=== PATIENT | female | born 1980 | race Caucasian/White ===

== ENCOUNTER 2018-06-01 09:37 | Emergency (ER) | payer MEDICAID, SELFPAY ==
[2018-06-01 09:41] VITALS: BP 142/40; PULSE 88; RESP 16; TEMP 36.8; O2SAT 96
--- NOTE | 2018-06-01 10:12 | ED.GENADUL_ITS ---
Discharge Plan Disposition Patient Disposition: HOME Condition: Improving Discharge Details Chief Complaint: Nk/Back Pain Clinical Impression: Rhomboid muscle strain Primary Care Provider: Kyree Kaur ED Provider: Seamus Natarajan Home Meds and New Rx's Prescriptions: New methocarbamol 500 mg tablet 500 mg PO Q6H PRN (Reason: Back pain or spasm) Qty: 14 RF: 0 Continued omeprazole 40 mg capsule,delayed release(DR/EC) 40 mg PO DAILY PRN (Reason: gerd) Qty: 45 RF: 3 fluticasone propionate 50 mcg/actuation spray,suspension 2 spray NS DAILY Qty: 16 RF: 3 methylphenidate HCl 10 mg tablet 10 mg PO TID MDD 3 tabs Qty: 90 RF: 0 Mirena 1 EACH intrauterine device 1 ea DAILY RF: 0 Discharge Instructions Instructions: Muscle Strain (ED) Additional Instructions: Follow-up with physical therapy as prescribed. Methocarbamol, as needed for discomfort. Continue acetaminophen 650-975 mg every 6 hours, and/or ibuprofen 600-800 mg every 8 hours, with food. Remove Lidoderm patch in 12 hours. 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 Minimally improved with [id number] medications. Reproducible and consistent with spasm and possible rhomboid spasm on exam. Will trial methocarbamol, Lidoderm patch times 12 hours, referral to physical therapy discussed with her home management as well as return HPI General Mode of arrival: ambulatory . Date/Time Provider Initiated Documentation: 06/01/18 09:46 . Limitations to Documentation: no limitations . Information obtained by: patient . History of Present Illness 37 year old F presents to the emergency department with the chief complaint of Right neck and back pain over 2 months, described as moderate, Quality is described as aching, and is localized to the neck, back and right. Patient started experiencing this hour(s) and it has been constant. Rest improves symptom(s), Movement worsens symptoms . Patient notes no other symptoms.; denies chest pain, cough, fever/chills and rash. Patient did receive the following treatments prior to arrival, none Related Data Home Medications Medication Instructions Recorded Confirmed Mirena 1 ea DAILY 05/22/13 06/01/18 omeprazole 40 mg capsule,delayed 40 mg PO DAILY PRN #45 tab-cap 01/09/18 06/01/18 release fluticasone propionate 50 2 spray NS DAILY #16 gm 04/11/18 06/01/18 mcg/actuation nasal spray,suspension methylphenidate 10 mg tablet 10 mg PO TID #90 tab MDD 3 tabs 05/11/18 06/01/18 methocarbamol 500 mg PO Q6H PRN #14 tab 06/01/18 Previous Rx's Medication Instructions Recorded omeprazole 40 mg capsule,delayed 40 mg PO DAILY PRN #45 tab-cap 01/09/18 release fluticasone propionate 50 2 spray NS DAILY #16 gm 04/11/18 mcg/actuation nasal spray,suspension methylphenidate 10 mg tablet 10 mg PO TID #90 tab MDD 3 tabs 05/11/18 methocarbamol 500 mg PO Q6H PRN #14 tab 06/01/18 Allergies Allergy/AdvReac Type Severity Reaction Status Date / Time No Known Allergies Allergy Unverified 06/01/18 10:00 General Stated Complaint: Nk/Back Pain SIDRA: 3 Review of Systems Review of Systems 6 systems reviewed and otherwise - [facility] Surgical History Cholecystectomy (~2000) Tooth extraction (~2008) Social History Smoking and Tabacco status: Former Tobacco Use Exam Narrative Exam Narrative: GEN: awake, alert, oriented 3. Pleasant, well groomed, interactive. HEAD: Normocephalic, atraumatic ENT: Mucous membranes moist, oropharynx unremarkable, External ear exam unremarkable EYES: PERRL, EOMI NECK: Full ROM, no AGUILA, no menigismus. Right posterior neck and medial scapular pain and spasm on palpation. No midline step-off or deformity CHEST/RESP: Nontender, clear to auscultation bilateral, no wheeze/rhonchi/rales CARDIOVASCULAR: RRR, no murmur, rub berenice. 2+ Rad pulse bilateral ABDOMEN: Soft, nontender, no mass. +Bowel sounds EXT: Full ROM, no edema, no rash Neuro: Grossly normal neurologic exam, conversant, interactive. Motor 5 out of 5 in the bilateral upper extremities. Sensation intact throughout Psych: Speech fluent, thoughts congruent, affect normal Course Vital Signs Temperature 36.8 C 06/01/18 09:41 Pulse 88 06/01/18 09:41 Respiratory Rate 16 06/01/18 09:41 Blood Pressure 142/40 H 06/01/18 09:41 Pulse Oximetry 96 06/01/18 09:41 Temperature 36.8 C 06/01/18 09:41 Temperature Source Skin 06/01/18 09:41 Pulse 88 06/01/18 09:41 Respiratory Rate 16 06/01/18 09:41 Respiratory Effort 06/01/18 10:02 Blood Pressure 142/40 H 06/01/18 09:41 Blood Pressure Position Standing 06/01/18 09:41 Pulse Oximetry 96 06/01/18 09:41 Oxygen Delivery Method Room Air 06/01/18 09:41 Oxygen Flow Rate 0 06/01/18 09:41 Pain Level 8 06/01/18 09:41
[2018-06-01] MEDS: Lidocaine 5% Patch 1 PATCH TP (10:17)
== END 2018-06-01 10:22 | disposition home or self-care (01) ==
PROVIDERS: Emergency Provider Emergency Medicine; PCP Family Medicine
DX: S46.812A Strain of other muscles, fascia and tendons at shoulder and upper arm level, left arm, initial encounter (principal); X50.3XXA Overexertion from repetitive movements, initial encounter
CPT/HCPCS: 99283

== ENCOUNTER 2018-10-10 09:21 | Outpatient (CLI) | payer MEDICAID, SELFPAY ==
[2018-10-10 11:03] LABS: Calculated LDL 139 mg/dL; Cholesterol 199 mg/dL (50-200); Glucose 106 mg/dL (70-100); HDL Cholesterol 37 mg/dL (40-60); Triglyceride 116 mg/dL (30-150)
== END 2018-10-10 09:41 ==
PROVIDERS: PCP Family Medicine; Visit Provider Family Medicine
DX: E66.3 Overweight (principal); K21.9 Gastro-esophageal reflux disease without esophagitis; F90.9 Attention-deficit hyperactivity disorder, unspecified type
CPT/HCPCS: 36415; 80061; 82947; 83721

== ENCOUNTER 2021-05-29 18:40 | Outpatient (REF) | payer MEDICAID, SELFPAY ==
[2021-05-29 18:52] LABS: ALT 26 U/L (14-59); AST 15 U/L (15-37); Albumin 3.9 g/dL (3.4-5.0); Alkaline Phosphatase 97 U/L (46-116); Bilirubin, Total 0.3 mg/dL (0.2-1.0); Calculated LDL 100 mg/dL (<100); Cholesterol 202 mg/dL (<200); Glucose 91 mg/dL (74-106); HDL Cholesterol 33 mg/dL (40-60); Triglyceride 348 mg/dL (<150)
[2021-05-29 19:06] LABS: Bilirubin, Direct 0.1 mg/dL (0.0-0.2)
== END 2021-05-29 18:41 | disposition home or self-care (01) ==
LOC: LBN 18:40
PROVIDERS: PCP Family Medicine; Visit Provider Family Medicine
DX: E78.5 Hyperlipidemia, unspecified (principal); R73.9 Hyperglycemia, unspecified; G72.89 Other specified myopathies
CPT/HCPCS: 80061; 80076; 82947

== ENCOUNTER → 2022-01-18 01:44 | Outpatient (CLI) | payer MEDICAID, SELFPAY ==
--- NOTE | 2022-01-18 08:50 | DI.MAMMO_ITS ---
Exam(s) MAMMO SCREENING EXAM: MAMMO SCREENING CLINICAL HISTORY: BASELINE SCREENING, Z12.31 TECHNIQUE: Mammograms were interpreted according to the usual protocol including computer analysis w [employer] CAD system, tomosynthesis and C-view imaging. COMPARISON: No exams were available for comparison. Baseline examination. FINDINGS: The breasts are composed of scattered fibroglandular densities, Breast Density category B. No suspicious masses or suspicious microcalcifications are seen. No skin thickening or abnormal axillary lymph nodes are seen. . IMPRESSION: BI-RADS Category 1, Negative mammogram Yearly screening mammography is recommended. Breast Density - Category B, scattered fibroglandular densities. A negative radiographic report should not delay biopsy if a dominant or clinically suspicious mass is present. Up to ten percent of cancers are not identified on mammography. A negative report may reinforce clinical impression. Adenosis and dense breasts may obscure an underlying neoplasm. False positive reports average 6 to 10%. Patient will receive a letter notifying them of these results.
== END ==
PROVIDERS: PCP Family Medicine; Visit Provider Advanced Practice Midwife
DX: Z12.31 Encounter for screening mammogram for malignant neoplasm of breast (principal)
CPT/HCPCS: 77063; 77067

== ENCOUNTER → 2023-06-13 03:09 | Outpatient (CLI) | payer MEDICAID, SELFPAY ==
--- NOTE | 2023-06-13 08:00 | DI.CT_ITS ---
Exam(s) CT ABDOMEN PELVIS W EXAM: CT ABDOMEN PELVIS W CLINICAL HISTORY: lower abd pain, R10.30. TECHNIQUE: Imaging Protocol: Axial computed tomography images with coronal and sagittal reformatted images were created and reviewed CONTRAST MATERIAL: Intravenous: Omnipaque 350 Contrast volume:100 ml Oral: yes / COMPARISON: No exams were available for comparison FINDINGS: ABDOMEN and PELVIS: Lung Bases: Mild dependent changes. Liver: Normal density. No measurable mass. Gallbladder and biliary tract: Status post cholecystectomy. No biliary dilatation. Pancreas: Normal density. No abnormal calcifications or inflammatory process. No evidence of mass. Spleen: Normal. Kidneys: Normal size, contour and axis. Few non obstructing tiny stones are noted bilaterally. No o bstructive uropathy. No suspicious masses seen. Adrenal glands: No masses seen. Vasculature: Abdominal aorta non-dilated. Soft tissues: Unremarkable. Bladder: No gross wall thickening. No calculi.No focal mass. Bowel: Normal quantity of stool. No obstruction. No bowel wall thickening. Appendix normal. Peritoneal cavity: No ascites. No focal collection or mesenteric inflammatory response. Bones: Degenerative disc changes at L4-5 and L5-S1. Reproductive organs: IUD appears appropriately positioned in the uterus. Lymph nodes: Unremarkable. IMPRESSION:: Bilateral nonobstructing renal calculi. No acute abnormality. RADIATION DOSE DELIVERED: Total DLP DATA REPOSITORY: All CT scans at this facility are submitted to the National Radiology Data Registry (NRDR) Dose Index Registry (DIR) with the [employer] ([employer]). RADIATION OPTIMIZATION: All CT scans at this facility use at least one of these dose optimization te chniques: automated exposure control; mA and/or kV adjustment per patient size (includes targeted exa ms where dose is matched to clinical indication); or iterative reconstruction.
[2023-06-13] MEDS: Barium Sulfate 2% W/V-Berry Smoothie 450 ML BTL PO ×2 (08:07→08:08)
[2023-06-13 09:08] LABS: CREATININE 0.7 mg/dL (0.55-1.02); Calculated LDL 136 mg/dL (<100); Cholesterol 214 mg/dL (<200); Estimated GFR 111.36 (mL/min/1.73m2); HDL Cholesterol 42 mg/dL (40-60); Triglyceride 183 mg/dL (<150)
[2023-06-13 09:11] LABS: Hemoglobin A1C 5.9 % (<5.7)
[2023-06-13] MEDS: Omnipaque 350 MG/ML 100 ML BTL IJ (10:18)
[2023-06-13] MEDS: Normal Saline - Diluent 50 ML VIAL IJ (10:19)
[2023-06-15 19:25] LABS: Tissue Transglutaminase Ab IgA <1.2 U/mL; Tissue Transglutaminase Ab IgG 2.3 U/mL
== END ==
PROVIDERS: PCP Family Medicine; Visit Provider Family Medicine
DX: R10.30 Lower abdominal pain, unspecified; E78.5 Hyperlipidemia, unspecified
CPT/HCPCS: 36415; 80061; 74177; 82565; 83036; 83516; J3490

== ENCOUNTER 2024-08-23 18:49 | Outpatient (REF) | payer OTHER, SELFPAY ==
[2024-08-30 14:01] LABS: Codeine Negative ng/mL (Cutoff: 25); Dihydrocodeine Negative ng/mL (Cutoff: 25); Hydrocodone Negative ng/mL (Cutoff: 25); Hydromorphone Negative ng/mL (Cutoff: 25); Morphine Negative ng/mL (Cutoff: 25); Naloxone Negative ng/mL (Cutoff: 25); Norhydrocodone Negative ng/mL (Cutoff: 25); Noroxycodone Negative ng/mL (Cutoff: 25); Noroxymorphone Negative ng/mL (Cutoff: 25); Opiates Interpretation Negative.
== END 2024-08-23 18:50 | disposition home or self-care (01) ==
LOC: LBN 18:49
PROVIDERS: PCP Family Medicine; Visit Provider Family Medicine
DX: R10.31 Right lower quadrant pain (principal); G89.29 Other chronic pain
CPT/HCPCS: 80361; 80362; 80365